=== PATIENT | female | born 1945 | race Caucasian/White ===

== ENCOUNTER 2019-02-25 20:49 | Emergency (ER) | payer MEDICARE ==
--- NOTE | 2019-02-25 21:39 | EDM.PDOC ---
ED HPI GENERAL MEDICAL PROBLEM - General Chief Complaint: Lower Extremity Injury/Pain Stated Complaint: LEFT FOOT PAIN/SWOLLEN Time Seen by Provider: 02/25/19 21:38 - History of Present Illness INITIAL COMMENTS - FREE TEXT/NARRATIVE: 79-year-old female comes in with foot pain she injured her foot earlier today she was wearing flip-flops and going down stairs carrying a heavy load she's not sure if she traumatized her foot at. She has pain over the dorsum of the foot and to a lesser degree over the balls of her feet in the plantar aspect. Left Feet Pain Score (Numeric/FACES): 8 - Related Data Allergies Allergy/AdvReac Type Severity Reaction Status Date / Time No Known Allergies Allergy Verified 02/25/19 21:03 Home Meds: Home Meds Aspirin [Ecotrin EC] 81 mg PO DAILY 02/25/19 [History] Cyanocobalamin (Vitamin B-12) [Vitamin B-12] 2,000 mcg PO DAILY 02/25/19 [ History] Folic Acid 1 mg PO DAILY 02/25/19 [History] Methotrexate 5 mg PO WETH 02/25/19 [History] Mv-Min/Iron/Folic/Calcium/Vitk [Women's Multivitamin Tablet] 1 tab PO DAILY 04/08 [History] Vitamin E 1,000 unit PO DAILY 02/25/19 [History] Past Medical History Musculoskeletal History: Reports: RA Oncologic (Cancer) History: Reports: Other (See Below) Other Oncologic History: basal cell carcinoma removed-benign - Past Surgical History GI Surgical History: Reports: Colonoscopy Female Surgical History: Reports: Hysterectomy Musculoskeletal Surgical History: Reports: Knee Replacement Other Musculoskeletal Surgeries/Procedures:: right Social & Family History - Tobacco Use Smoking Status *Q: Never Smoker - Caffeine Use Caffeine Use: Reports: Soda - Recreational Drug Use Recreational Drug Use: No Review of Systems - Review of Systems Review Of Systems: See Below Constitutional: Reports: No Symptoms Respiratory: Reports: No Symptoms Cardiovascular: Reports: No Symptoms GI/Abdominal: Reports: No Symptoms ED EXAM, GENERAL - Physical Exam Exam: See Below Exam Limited By: No Limitations General Appearance: Alert, No Apparent Distress Respiratory/Chest: No Respiratory Distress, Lungs Clear, Normal Breath Sounds Cardiovascular: Regular Rate, Rhythm, No Edema, No Murmur Extremities: Other (Semination of the left foot shows no obvious fracture dislocation neurovascular status is intact patient has vague discomfort over the dorsum of the metatarsals. No pain over the base of the fifth metatarsal the metatarsal head seem to be for the most part spared dorsally on the plantar surface she has pain over the metatarsal heads of the second third and fourth rays. No obvious deformity neurovascular status of the foot to normal) Course - Vital Signs Last Recorded V/S: Last Vital Signs Temp 37.6 C 02/25/19 21:02 Pulse 106 H 02/25/19 21:02 Resp 20 02/25/19 21:02 BP 160/83 H 02/25/19 21:02 Pulse Ox 96 02/25/19 21:02 - Orders/Labs/Meds Orders: Active Orders 24 hr Category Date Time Status Foot Comp Min 3V Lt [CR] Stat Exams 02/25/19 21:48 Ordered Durable Medical Equipment for Discharge [DME for Oth 02/25/19 22:31 Ordered Discharge] [COMM] Stat - Re-Assessments/Exams Free Text/Narrative Re-Assessment/Exam: 02/25/19 22:34 Radiologic evaluation the foot is negative for fracture dislocation. Explained to the patient continues to have pain she may need repeat x-rays and a couple of weeks. Between then and now she'll wear a Western walker at all times. Departure - Departure Time of Disposition: 22:35 Disposition: Home, Self-Care 01 Clinical Impression: Injury of left foot - Discharge Information Referrals: PCP,Not In Area [Primary Care Provider] - Forms: ED Department Discharge Additional Instructions: Return to the emergency room with any questions problems worsening symptoms. Use Tylenol as needed for pain wear the splint at all times. Follow-up he regular doctor in 2 weeks for recheck if you're still having pain repeat x-rays would be warranted. It sounds like you to be doing quite a bit of traveling the next couple of weeks be sure and get up and move around including walking every hour and a half. This is to prevent blood clots - My Orders Last 24 Hours: My Active Orders 02/25/19 21:48 Foot Comp Min 3V Lt [CR] Stat 02/25/19 22:31 Durable Medical Equipment for Discharge [DME for Discharge] [COMM] Stat - Assessment/Plan Last 24 Hours: My Active Orders 02/25/19 21:48 Foot Comp Min 3V Lt [CR] Stat 02/25/19 22:31 Durable Medical Equipment for Discharge [DME for Discharge] [COMM] Stat
--- NOTE | 2019-02-27 19:35 | CR ---
Left foot: Four views of the left foot were obtained. Comparison: No previous foot exam. Plantar spur is seen. Spur noted at the attachment of the Achilles tendon to the calcaneus. Plantar calcifications are seen. Calcifications are also seen within the distal Achilles tendon. Bony structures are osteopenic. Small erosion is noted off the corner base of the proximal phalanx of the first digit as well as off the distal proximal phalanx of the first digit. These findings are suspicious for previous gout. No acute fracture or other abnormality is seen. Impression: 1. Probable previous gout within the first digit as noted above. 2. Calcaneal spurs and adjacent soft tissue calcifications. 3. Nothing acute is appreciated. Diagnostic code #3
== END 2019-02-25 22:49 | disposition home or self-care (01) ==
LOC: JD.ED 20:49
DX: S99.922A Unspecified injury of left foot, initial encounter (principal); M06.9 Rheumatoid arthritis, unspecified; Z90.710 Acquired absence of both cervix and uterus; Z79.82 Long term (current) use of aspirin; X58.XXXA Exposure to other specified factors, initial encounter
CPT/HCPCS: 73630-26-LT; 73630-LT; 99282; 99283-25